=== PATIENT | male | born 1995 | race Caucasian/White ===

== ENCOUNTER 2019-06-02 03:36 | Emergency (ER) | payer OTHER, SELFPAY ==
[2019-06-02 03:37] VITALS: BP 146/93; PULSE 96; RESP 18; TEMP 36.3; O2SAT 99; BMI 26.6
--- NOTE | 2019-06-02 03:48 | RAD_ITS ---
STUDY: X-RAY - SOFT TISSUE NECK REASON FOR EXAM: Male, 24 years old with abrasion to anterior neck after fall at work. TECHNIQUE: AP and lateral view(s) of the neck were obtained. COMPARISON: None. FINDINGS: Normal visualized nasopharynx, oropharynx, hypopharynx. Normal epiglottis. Normal visualized subglottic tracheal air column. Normal prevertebral soft tissue structures. Normal visualized osseous structures. The soft tissue structures are unremarkable. Lung apices appear to be clear. RAD/Neck for Soft Tissue IMPRESSION: No radiographic evidence for acute abnormality. Electronically Signed: Elissa Rice MD at 5:07 EST , Service support ,
--- NOTE | 2019-06-02 03:49 | ED.DCSUM_ITS ---
- ER Visit Summary Date of Service: 06/02/19 Chief Complaint: Fall History of Present Illness: The patient is a 24 M who presents with a fall that occurred today while at work. Patient states he slipped on some water on the floor when he fell. Patient states that he hit his throat on the corner of a table. Patient also noted some pain in his knee after the fall and thinks he may have landed on his knee. Patient denies any loss of consciousness. Patient was ambulatory after the fall. Patient states his throat pain is worse with swallowing. Patient admits to a cough initially but states this has resolved. Patient denies any shortness of breath. Physical Examination: Vital signs are stable. Patient is afebrile. Patient is in no acute distress. Oral mucosa is pink and moist. Oropharynx is clear. Airway is patent. Neck is supple. Trachea is midline. There is no s ubcutaneous emphysema noted. There is some mild tenderness over the anterior neck. There is a superficial abrasion. There is no bleeding. There is no ecchymosis. Heart was regular rate and rhythm. Lungs are clear and equal bilaterally. Cranial nerves II through XII are intact. There are no focal motor or sensory deficits noted. Musculoskeletal exam reveals tenderness over the anterior aspect of the right knee. There is no effusion. There is no edema or ecchymosis. There is good range of motion. There is no laxity appreciated. Test Results: X-rays of the soft tissue neck were obtained. There is no acute abnormality. X-rays of the right knee were obtained. There is no acute fracture. These were interpreted by the radiologist and reviewed by myself. Emergency Department Course and Treatment: Patient was instructed to apply ice to his neck and right knee. Patient was instructed to take Tylenol or ibuprofen as needed for pain. Patient was instructed to follow-up with his primary care physician or formerly [facility] in 5 to 7 days. Patient understood and was agreeable with the plan. All questions were answered. Disposition: Discharge home Impression: 1. Anterior neck contusion 2. Right knee contusion This note was generated with [employer] software. It may contain incorrect words, spelling, and punctuation that were not noted in review of the chart prior to signing ED Disposition - Plan for ED Patient: Disposition: Home or Assisted Living Diagnosis: Neck contusion, Contusion of right knee Instructions: CONTUSION, Soft Tissue Referrals: Yaron Sims MD [Primary Care Provider] - 5-7 Days Corporate,[facility] [GROUP OF PHYSICIANS] - 5-7 Days
--- NOTE | 2019-06-02 04:00 | RAD_ITS ---
STUDY: X-RAY - RIGHT KNEE REASON FOR EXAM: Male, 24 years old with right-sided knee pain after fall. TECHNIQUE: 5 view(s) of the knee. COMPARISON: None. FINDINGS: Normal visualized distal femur. Normal visualized proximal tibia and fibula. Normal proximal tibiofibular articulation. Normal medial femorotibial compartment. Normal lateral femorotibial compartment. Normal patellofemoral articulation. There is no demonstrated joint effusion. The soft tissue structures are unremarkable. RAD/Knee 4 or More Views IMPRESSION: No radiographic evidence for acute fracture. Electronically Signed: Elissa Rice MD at 5:05 EST , Service support ,
[2019-06-02 05:21] VITALS: BP 131/73; PULSE 68; RESP 18; O2SAT 98
== END 2019-06-02 05:22 | disposition home or self-care (01) ==
PROVIDERS: Emergency Provider Emergency Medicine; PCP Family Medicine; Referring Provider Family Medicine
DX: S10.93XA Contusion of unspecified part of neck, initial encounter (principal); S80.01XA Contusion of right knee, initial encounter; W01.0XXA Fall on same level from slipping, tripping and stumbling without subsequent striking against object, initial encounter; Y93.9 Activity, unspecified; Y92.9 Unspecified place or not applicable; Y99.0 Civilian activity done for income or pay
CPT/HCPCS: 70360; 73564; 99282

== ENCOUNTER → 2023-01-24 | Outpatient (CLI) | payer OTHER, SELFPAY ==
[2023-01-24 17:46] LABS: Hematocrit 43.9 % (40-54); Hemoglobin 14.6 g/dL (13.0-16.5); Mean Corp Hgb Conc 33.3 g/dL (32-36); Mean Corpuscular Hgb 27.9 pg (27.0-32.0); Mean Corpuscular Volume 83.8 fL (80-94); Mean Platelet Vol. 10.4 fl (6.2-12.0); Platelet Count 296 K/mm3 (150-450); RBC Distribution Width CV 13.1 % (11.6-14.6); Red Blood Count 5.24 M/mm3 (4.6-6.2); White Blood Count 7.5 K/mm3 (4.4-11.0)
[2023-01-24 18:09] LABS: Erythrocyte Sedimentation Rate 2 mm/hr (0-20)
[2023-01-24 18:41] LABS: CRP < 2.90 mg/L (0.0-3.0)
[2023-01-25 10:47] LABS: ALB/GLOB Ratio 1.2 RATIO (0.9-2.4); AST(SGOT) 20 U/L (15-37); Alanine Aminotransfer ALT/SGPT 52 U/L (16-61); Albumin, Serum 4.1 g/dL (3.2-5.0); Alkaline Phosphatase 47 U/L (45-117); Anion Gap 5 (5-15); BUN 11 mg/dL (7-18); BUN/Creat Ratio 9.9 RATIO (10-20); Calcium,Total 9.4 mg/dL (8.5-10.1); Chloride 108 mmol/L (98-107); Creatinine, Serum 1.11 mg/dL (0.70-1.30); EST Glomerular Filtration Rate 84 mL/min (>60); Est Glom Filt Rate - Afr Amer 101 mL/min (>60); Globulin 3.5 g/dL (2.2-4.2); Glucose 82 mg/dL (74-106); Potassium 4.1 mmol/L (3.5-5.1); Protein, Total 7.6 g/dL (6.4-8.2); Sodium Level 140 mmol/L (136-145)
[2023-01-26 15:08] LABS: Endomysial Antibody IgA Negative (Negative); Immunoglobulin A 196 mg/dL (90-386); t-Transglutaminase IgA <2 U/mL (0-3)
== END | disposition home or self-care (01) ==
LOC: MTLAB 16:13
PROVIDERS: PCP Registered Nurse; Referring Provider Internal Medicine Gastroenterology; Visit Provider Internal Medicine Gastroenterology
DX: R63.4 Abnormal weight loss (principal); R10.9 Unspecified abdominal pain
CPT/HCPCS: 36415; 80053; 82784; 83516; 85027; 85652; 86140; 86255